=== PATIENT | male | born 1945 | race Caucasian/White ===

== ENCOUNTER 2017-08-10 14:04 | Emergency (ER) | payer MEDICARE, OTHER ==
[2017-08-10 15:34] LABS: Bilirubin Negative (Negative); Blood, Urine Negative (Negative); Clarity CLEAR (Clear); Glucose, Urine (Dipstick) 100 mg/dL (Negative); Leukocyte Trace (Negative); Nitrite Negative (Negative); Protein, Urine (Dipstick) Negative (Neg-Trace); Specific Gravity, Urine 1.022 (1.002-1.036)
[2017-08-10 15:37] LABS: Bacteria/HPF None Seen HPF (None Seen); Hyaline Casts/LPF 0-3 HYALINE CAST LPF (0-3 Hyaline); RBC/HPF 0-3 HPF (0-3); Squamous Epithelial 0-3 HPF (0-3); WBC/HPF 0-3 HPF (0-3)
[2017-08-10 15:55] LABS: #Basophils 0.1 thou/uL (0.0-0.2); #Eosinphils 0.6 thou/uL (0.0-0.7); #Lymphocytes 2.4 thou/uL (1.20-3.40); #Monocytes 0.8 thou/uL (0.11-0.59); #Neutrophils 3.9 thou/uL (1.40-6.50); %Basophils 1.3 % (0.0-1.0); %Eosinophils 7.6 % (0.0-10.0); %Lymphocytes 30.6 % (21.0-51.0); %Monocytes 10.6 % (0.0-10.0); %Neutrophils 49.9 % (42.0-75.0); Hemoglobin 13.7 g/dL (14.0-18.0); Mean Corpuscular HGB CONC 32.7 g/dL (32.0-36.0); Mean Corpuscular Hemoglobin 31.3 pg (27.0-31.0); Mean Corpuscular Volume 95.7 fl (80.0-94.0); Mean Platelet Volume 5.9 fL (7.4-10.4); Platelet Count 257 thou/uL (130-400); RBC Distribution Width 12.6 % (11.5-14.5); Red Blood Cell (RBC) Count 4.37 mill/uL (4.70-6.10); White Blood Cell (WBC) Count 7.8 thou/uL (4.8-10.8)
[2017-08-10 16:16] LABS: ALT (SGPT) 29 U/L (8-55); AST (SGOT) 29 U/L (5-34); Alkaline Phosphatase 57 U/L (40-150); Anion Gap 12 mmol/L (10-20); BUN (Urea Nitrogen) 21 mg/dL (8.4-25.7); Bilirubin, Total 0.3 mg/dL (0.2-1.2); Calc. Creatinine Clearance 0 mL/min (70-130); Calcium 9.3 mg/dL (7.8-10.44); Carbon Dioxide 25 mmol/L (23-31); Chloride 104 mmol/L (98-107); Estimated GFR-MDRD 59; Globulin 3.5 g/dL (2.4-3.5); Glucose 153 mg/dL (83-110); Lipase 32 U/L (8-78); Potassium 3.9 mmol/L (3.5-5.1); Protein, Total 7.5 g/dL (5.8-8.1); Sodium 137 mmol/L (136-145)
--- NOTE | 2017-08-10 17:03 | CT ---
CT OF ABDOMEN AND PELVIS: Date: 08-10-17 Comparison: 05-19-12 History: Left sided pain, back pain, left flank pain. Technique: Serial axial CT imaging is obtained at 5 mm intervals from lung bases through pubic symphy sis without contrast. Coronal reformatted imaging obtained. FINDINGS: The lack of contrast media limits assessment of the viscera bowel vascular structures and for lymphad enopathy. The visualized lung bases are unremarkable. Incompletely assessed coronary arterial calcifications ar e present. No free intraperitoneal air or fluid. Liver is hypodense suggesting a degree of steatosis. Gallbladder appears surgically absent. Spleen, p ancreas, and adrenal glands are grossly unremarkable. There is no evidence for nephrolithiasis or obstructive uropathy on either side. Prostate gland is markedly enlarged and contains dystrophic calcification, measuring 5.6 cm AP dimens ion, 6.9 cm transverse dimension and 5.5 cm craniocaudal dimension. Limited assessment of the bowel demonstrates significant stool throughout the colon. Appendix is unre markable. There is no evidence for bowel inflammatory changes or obstruction. There is extensive athe rosclerotic calcification in the abdominal aorta and its branches. There is severe degenerative changes seen throughout the mid thoracic spine and lumbar spine, most pr ominent within the lower lumbar spine where there is severe multilevel facet hypertrophy. There is mu ltilevel disc space narrowing, vacuum disc formation, subchondral sclerosis and osteophyte formation. There is an area of calcification approaching the central canal at L4-5 posteriorly and there is mul tilevel bilateral laminectomy change. These findings are similar when compared to the 2014 examinatio n. No worrisome lytic or blastic bone lesions. IMPRESSION: Numerous chronic findings as detailed above. There is no evidence for obstructive uropathy or nephrol ithiasis. POS: [facility]
[2017-08-10] MEDS ORDERED: Ketorolac Tromethamine 30 MG/ML VIAL ONE (17:07)
== END 2017-08-10 20:05 | disposition home or self-care (01) ==
LOC: ERS 14:04
DX: R10.9 Unspecified abdominal pain (principal); E11.9 Type 2 diabetes mellitus without complications; I10 Essential (primary) hypertension; Z79.899 Other long term (current) drug therapy; Z87.442 Personal history of urinary calculi; Z79.84 Long term (current) use of oral hypoglycemic drugs
CPT/HCPCS: 74176; 80053; 81003; 81015; 83690; 85025; 96374; J1885

== ENCOUNTER 2025-02-10 01:12 | Emergency (ER) | payer MEDICARE, BC | END 2025-02-10 02:07 | LOC: ERS 01:12 | DX: T82.594A Other mechanical complication of infusion catheter, initial encounter (principal); E11.9 Type 2 diabetes mellitus without complications; I10 Essential (primary) hypertension; Z79.899 Other long term (current) drug therapy | CPT/HCPCS: 99283 ==

== ENCOUNTER → 2025-02-10 | Emergency (ER) | payer MEDICARE, BC ==
[~2025-02-10] MED LIST: Lidocaine 1% w/Epinephrine 1:100K 20 ML VIAL ONE; Sodium Bicarbonate 2.5 MEQ/5 ML SDV ONE
== END ==
LOC: ERS 10:42 → SPEC 10:42
DX: T82.594A Other mechanical complication of infusion catheter, initial encounter (principal); I10 Essential (primary) hypertension; E11.9 Type 2 diabetes mellitus without complications; Z79.899 Other long term (current) drug therapy
CPT/HCPCS: 36573; 99283; C1751

== ENCOUNTER 2025-02-16 11:02 | Inpatient (IN) | payer MEDICARE, BC ==
[2025-02-16 12:06] VITALS: BMI 32.1
[2025-02-16 12:49] LABS: #Basophils 0.07 10x3/uL (0.0-0.2); #Eosinophils 0.35 10x3/uL (0.0-0.7); #Monocytes 0.96 10x3/uL (0.11-0.59); #Neutrophils 6.51 10x3/uL (1.40-6.50); %Basophils 0.7 % (0.0-1.0); %Eosinophils 3.7 % (0.0-10.0); %Lymphocytes 14.2 % (21.0-51.0); %Monocytes 10.2 % (0.0-10.0); %Neutrophils 69.4 % (42.0-75.0); Hematocrit 36.4 % (42.0-52.0); Hemoglobin 11.2 g/dL (14.0-18.0); Mean Corpuscular Hemoglobin 29.6 pg (27.0-31.0); Mean Corpuscular Volume 96.0 fL (78.0-98.0); Platelet Count 162 10x3/uL (130-400); Red Blood Cell (RBC) Count 3.79 mill/uL (4.70-6.10); White Blood Cell (WBC) Count 9.39 10x3/uL (4.8-10.8)
[2025-02-16 13:09] LABS: Anion Gap 16 mmol/L (10-20); BUN (Urea Nitrogen) 20 mg/dL (8.4-25.7); Calc. Creatinine Clearance 79 mL/min (70-130); Calcium 9.2 mg/dL (7.8-10.44); Carbon Dioxide 28 mmol/L (23-31); Chloride 99 mmol/L (98-107); Glucose 173 mg/dL (83-110); Potassium 4.1 mmol/L (3.5-5.1); Sodium 139 mmol/L (136-145)
[2025-02-16 13:10] LABS: CRP, High Sensitivity at Bryan 1.92 mg/dL (< or = 0.5)
[2025-02-16] MEDS ORDERED: Bacitracin Zinc Ointment 30 gm TUBE ONE (16:15)
[2025-02-16] MEDS ORDERED: Thrombin 5000 UNITS/5 ML VIAL ONE ×2 (16:16→18:48)
[2025-02-16] MEDS ORDERED: Lidocaine 1% PF 5 ML VIAL ONE (16:28)
[2025-02-16] MEDS ORDERED: Ondansetron PF 4 MG/2 ML Vial ONE (16:28)
[2025-02-16] MEDS ORDERED: PROPOFOL 20 ML ONE (16:28)
[2025-02-16] MEDS ORDERED: SUCCINYLCHOLINE/SOD CL,ISO/PF 200 MG/10 ML SYRINGE FS ONE (17:31)
[2025-02-16] MEDS ORDERED: TETANUS, DIPHTHERIA TOX,ADULT (TDVAX) 0.5 ML VIAL IM ONE (17:33)
[2025-02-16] MEDS ORDERED: Meperidine HCl/PF 25 MG (1 mL) VIAL IM PRN (17:37)
[2025-02-16] MEDS ORDERED: [UNRECOGNIZED DRUG - REMARK] FS SCH (17:45)
[2025-02-16] MEDS ORDERED: Rocuronium Bromide 10 MG/ML (10ML VIAL) ONE (17:47)
[2025-02-16] MEDS ORDERED: PHENYLEPHRINE-NS 100 MCG/ML 10 ML SYRINGE ONE (18:01)
[2025-02-16] MEDS ORDERED: SUGAMMADEX SODIUM 200 MG/2 ML VIAL ONE (18:52)
[2025-02-16] MEDS ORDERED: Vancomycin 1 GM in Premix 1 BAG IVPB SCH (21:00)
[2025-02-16] MEDS: Mupirocin 1 GM TUBE TP SCH (21:58)
[2025-02-16] MEDS: Aspirin 81 mg Enteric Coated Tablet PO SCH (21:58)
[2025-02-16] MEDS: Vancomycin 1.25 GM / NS 250 ML VIAL-2-BAG IVPB SCH (22:03)
[2025-02-17] MEDS: TETANUS AND DIPHTHERIA TOX/PF 0.5 ML DISP.SYRIN IM SCH (06:57)
[2025-02-17 07:49] LABS: ALT (SGPT) 20 U/L (Less than 45); AST (SGOT) 25 U/L (11-34); Albumin 2.5 g/dL (3.1-4.5); Alkaline Phosphatase 80 U/L (40-110); Anion Gap 12 mmol/L (10-20); BUN (Urea Nitrogen) 16 mg/dL (8.4-25.7); Bilirubin, Total 0.4 mg/dL (0.3-1.2); Calc. Creatinine Clearance 102 mL/min (70-130); Calcium 8.6 mg/dL (7.8-10.44); Carbon Dioxide 29 mmol/L (23-31); Chloride 101 mmol/L (98-107); Globulin 3.8 g/dL (2.4-3.5); Glucose 125 mg/dL (83-110); Potassium 4.4 mmol/L (3.5-5.1); Sodium 138 mmol/L (136-145)
[2025-02-17 08:04] LABS: #Basophils 0.06 10x3/uL (0.0-0.2); #Eosinophils 0.46 10x3/uL (0.0-0.7); #Monocytes 1.10 10x3/uL (0.11-0.59); #Neutrophils 6.70 10x3/uL (1.40-6.50); %Basophils 0.6 % (0.0-1.0); %Eosinophils 4.4 % (0.0-10.0); %Lymphocytes 19.4 % (21.0-51.0); %Monocytes 10.5 % (0.0-10.0); %Neutrophils 64.0 % (42.0-75.0); Hematocrit 32.1 % (42.0-52.0); Hemoglobin 10.0 g/dL (14.0-18.0); Mean Corpuscular Hemoglobin 29.8 pg (27.0-31.0); Mean Corpuscular Volume 95.5 fL (78.0-98.0); Platelet Count 156 10x3/uL (130-400); Red Blood Cell (RBC) Count 3.36 mill/uL (4.70-6.10); White Blood Cell (WBC) Count 10.47 10x3/uL (4.8-10.8)
[2025-02-17] MEDS: Metoprolol Succinate XL 100 MG ER.TAB PO SCH (09:22)
[2025-02-17] MEDS: glipiZIDE 5 MG TAB PO SCH (09:22)
[2025-02-17] MEDS: Cholecalciferol 1,000 UNITS (25 MCG) TAB PO SCH (09:23)
[2025-02-17] MEDS: Lisinopril 20 MG TAB PO SCH (09:23)
[2025-02-17] MEDS: Cyanocobalamin (Vitamin B-12) 1,000 MCG TAB PO SCH (09:23)
[2025-02-17] MEDS: Gabapentin 300 MG CAP PO SCH (09:23)
[2025-02-17] MEDS: HYDROcodone/Acetaminophen 5/325 mg Tablet PO PRN (09:35)
[2025-02-17 11:04] VITALS: BMI 32.1
[2025-02-17] MEDS: Ondansetron PF 4 MG/2 ML Vial IVP PRN (14:44)
[2025-02-17] MEDS: Ciprofloxacin 500 MG TAB PO SCH (20:37)
[2025-02-17] MEDS: Methocarbamol 500 MG TAB PO SCH (20:37)
[2025-02-18 05:25] LABS: Vancomycin, Random 14.1 ug/mL (See Comment)
[2025-02-20] MEDS: Acetaminophen/Codeine 30-300mg Tablet PO PRN (01:11)
[2025-02-20] MEDS: cefTRIAXone\\ROCEPHIN 2 GM in Sodium Chloride 0.9% 100 ML IVPB SCH (15:43)
[2025-02-20 18:00] LABS: #Basophils 0.05 10x3/uL (0.0-0.2); #Eosinophils 0.74 10x3/uL (0.0-0.7); #Monocytes 0.75 10x3/uL (0.11-0.59); #Neutrophils 5.19 10x3/uL (1.40-6.50); %Basophils 0.6 % (0.0-1.0); %Eosinophils 8.4 % (0.0-10.0); %Lymphocytes 22.6 % (21.0-51.0); %Monocytes 8.5 % (0.0-10.0); %Neutrophils 58.5 % (42.0-75.0); Hematocrit 30.9 % (42.0-52.0); Hemoglobin 9.8 g/dL (14.0-18.0); Mean Corpuscular Hemoglobin 30.3 pg (27.0-31.0); Mean Corpuscular Volume 95.7 fL (78.0-98.0); Platelet Count 150 10x3/uL (130-400); Red Blood Cell (RBC) Count 3.23 mill/uL (4.70-6.10); White Blood Cell (WBC) Count 8.85 10x3/uL (4.8-10.8)
[2025-02-20] MEDS ORDERED: Vancomycin 1 GM in Premix 1 BAG IVPB SCH (21:00)
[2025-02-21 01:17] LABS: Urine Total Volume 3600.0 mL (250-2400)
[2025-02-21 03:02] LABS: Uric Acid - 24 Hr 468.0 mg/24 hr; Uric Acid-Urine 13.0 mg/dL
[2025-02-21 05:22] LABS: Calc. Creatinine Clearance 100.0 mL/min (70-130); Vancomycin, Random 24.9 ug/mL (See Comment)
[2025-02-22 05:53] LABS: #Basophils 0.07 10x3/uL (0.0-0.2); #Eosinophils 0.80 10x3/uL (0.0-0.7); #Monocytes 1.00 10x3/uL (0.11-0.59); #Neutrophils 5.25 10x3/uL (1.40-6.50); %Basophils 0.7 % (0.0-1.0); %Eosinophils 8.1 % (0.0-10.0); %Lymphocytes 26.2 % (21.0-51.0); %Monocytes 10.1 % (0.0-10.0); %Neutrophils 53.3 % (42.0-75.0); Hematocrit 30.3 % (42.0-52.0); Hemoglobin 9.9 g/dL (14.0-18.0); Mean Corpuscular Hemoglobin 31.0 pg (27.0-31.0); Mean Corpuscular Volume 95.0 fL (78.0-98.0); Platelet Count 168 10x3/uL (130-400); Red Blood Cell (RBC) Count 3.19 mill/uL (4.70-6.10); White Blood Cell (WBC) Count 9.87 10x3/uL (4.8-10.8)
[2025-02-22 06:06] LABS: Anion Gap 12 mmol/L (10-20); BUN (Urea Nitrogen) 25 mg/dL (8.4-25.7); Calc. Creatinine Clearance 93 mL/min (70-130); Calcium 8.9 mg/dL (7.8-10.44); Carbon Dioxide 30 mmol/L (23-31); Chloride 101 mmol/L (98-107); Glucose 110 mg/dL (83-110); Potassium 3.9 mmol/L (3.5-5.1); Sodium 139 mmol/L (136-145)
[2025-02-23 05:25] LABS: #Basophils 0.05 10x3/uL (0.0-0.2); #Eosinophils 0.80 10x3/uL (0.0-0.7); #Monocytes 1.01 10x3/uL (0.11-0.59); #Neutrophils 6.13 10x3/uL (1.40-6.50); %Basophils 0.5 % (0.0-1.0); %Eosinophils 7.5 % (0.0-10.0); %Lymphocytes 23.7 % (21.0-51.0); %Monocytes 9.5 % (0.0-10.0); %Neutrophils 57.8 % (42.0-75.0); Hematocrit 30.7 % (42.0-52.0); Hemoglobin 9.8 g/dL (14.0-18.0); Mean Corpuscular Hemoglobin 30.2 pg (27.0-31.0); Mean Corpuscular Volume 94.5 fL (78.0-98.0); Platelet Count 166 10x3/uL (130-400); Red Blood Cell (RBC) Count 3.25 mill/uL (4.70-6.10); White Blood Cell (WBC) Count 10.62 10x3/uL (4.8-10.8)
[2025-02-23 05:52] LABS: Anion Gap 11 mmol/L (10-20); BUN (Urea Nitrogen) 24 mg/dL (8.4-25.7); Calc. Creatinine Clearance 100 mL/min (70-130); Calcium 9.0 mg/dL (7.8-10.44); Carbon Dioxide 31 mmol/L (23-31); Chloride 101 mmol/L (98-107); Glucose 99 mg/dL (83-110); Potassium 4.0 mmol/L (3.5-5.1); Sodium 139 mmol/L (136-145); Vancomycin, Random 21.3 ug/mL (See Comment)
[2025-02-24 05:19] LABS: #Basophils 0.08 10x3/uL (0.0-0.2); #Eosinophils 0.89 10x3/uL (0.0-0.7); #Monocytes 0.96 10x3/uL (0.11-0.59); #Neutrophils 5.43 10x3/uL (1.40-6.50); %Basophils 0.8 % (0.0-1.0); %Eosinophils 8.8 % (0.0-10.0); %Lymphocytes 25.7 % (21.0-51.0); %Monocytes 9.5 % (0.0-10.0); %Neutrophils 53.8 % (42.0-75.0); Hematocrit 30.9 % (42.0-52.0); Hemoglobin 9.8 g/dL (14.0-18.0); Mean Corpuscular Hemoglobin 30.2 pg (27.0-31.0); Mean Corpuscular Volume 95.4 fL (78.0-98.0); Platelet Count 167 10x3/uL (130-400); Red Blood Cell (RBC) Count 3.24 mill/uL (4.70-6.10); White Blood Cell (WBC) Count 10.09 10x3/uL (4.8-10.8)
[2025-02-24 05:36] LABS: Anion Gap 10 mmol/L (10-20); BUN (Urea Nitrogen) 23 mg/dL (8.4-25.7); Calc. Creatinine Clearance 107 mL/min (70-130); Calcium 8.7 mg/dL (7.8-10.44); Carbon Dioxide 31 mmol/L (23-31); Chloride 101 mmol/L (98-107); Glucose 89 mg/dL (83-110); Potassium 4.1 mmol/L (3.5-5.1); Sodium 138 mmol/L (136-145)
[2025-02-24] MEDS ORDERED: Ropivacaine 0.5% HCl/PF (150 MG/30 ML VIAL) ONE (10:00)
[2025-02-24] MEDS ORDERED: Ropivacaine 0.2% HCl/PF 20 ML ONE (10:01)
[2025-02-24] MEDS ORDERED: Lidocaine 1% PF 5 ML VIAL ONE (10:03)
[2025-02-24] MEDS ORDERED: fentaNYL PF 100 MCG/2 ML SYRINGE ONE (10:03)
[2025-02-24] MEDS ORDERED: Ondansetron PF 4 MG/2 ML Vial ONE (10:03)
[2025-02-24] MEDS ORDERED: Glycopyrrolate 0.2 MG/ML 5 ML SYRINGE ONE (10:25)
[2025-02-24] MEDS ORDERED: EPINEPHrine 1 MG/10 ML Abboject SYRINGE ONE (10:25)
[2025-02-24] MEDS ORDERED: Bacitracin Zinc Ointment 30 gm TUBE ONE (11:41)
[2025-02-24] MEDS ORDERED: PHENYLEPHRINE-NS 100 MCG/ML 10 ML SYRINGE ONE ×2 (12:22→13:17)
[2025-02-25] MEDS: Pantoprazole 40 MG VIAL IVP SCH (09:12)
[2025-02-26 07:15] LABS: #Basophils 0.08 10x3/uL (0.0-0.2); #Eosinophils 0.52 10x3/uL (0.0-0.7); #Monocytes 1.08 10x3/uL (0.11-0.59); #Neutrophils 5.87 10x3/uL (1.40-6.50); %Basophils 0.7 % (0.0-1.0); %Eosinophils 4.9 % (0.0-10.0); %Lymphocytes 28.5 % (21.0-51.0); %Monocytes 10.1 % (0.0-10.0); %Neutrophils 54.9 % (42.0-75.0); Hematocrit 29.2 % (42.0-52.0); Hemoglobin 9.1 g/dL (14.0-18.0); Mean Corpuscular Hemoglobin 30.3 pg (27.0-31.0); Mean Corpuscular Volume 97.3 fL (78.0-98.0); Platelet Count 165 10x3/uL (130-400); Red Blood Cell (RBC) Count 3.00 mill/uL (4.70-6.10); White Blood Cell (WBC) Count 10.70 10x3/uL (4.8-10.8)
[2025-02-26] MEDS: Calcium Carbonate 500 MG ChewTAB PO PRN (23:19)
[2025-02-28] MEDS: Acetaminophen 325 MG TAB PO PRN (01:15)
[2025-02-28] MEDS: diphenhydrAMINE 25 MG CAP PO SCH (03:04)
[2025-02-28] MEDS: Ketorolac Tromethamine 30 MG (1 mL) VIAL IVP SCH (05:24)
[2025-02-28 06:35] LABS: Vancomycin, Random 20.7 ug/mL (See Comment)
[2025-02-28 06:36] LABS: Calc. Creatinine Clearance 106.0 mL/min (70-130)
[2025-03-01 16:04] VITALS: BP 142/68; TEMP 98.1
== END 2025-03-01 18:47 | DRG 623 ==
LOC: SURG A 11:02
PROVIDERS: ADMIT Orthopaedic Surgery Hand Surgery; ATTEND Orthopaedic Surgery Hand Surgery
PROC: 0RBN0ZZ Excision of Right Wrist Joint, Open Approach (ICD-10-PCS; principal; 2025-02-16)
PROC: 3E03329 Introduction of Other Anti-infective into Peripheral Vein, Percutaneous Approach (ICD-10-PCS; 2025-02-16)
PROC: 3E033XZ Introduction of Vasopressor into Peripheral Vein, Percutaneous Approach (ICD-10-PCS; 2025-02-16)
PROC: 0R9N0ZZ Drainage of Right Wrist Joint, Open Approach (ICD-10-PCS; 2025-02-16)
PROC: 3E0234Z Introduction of Serum, Toxoid and Vaccine into Muscle, Percutaneous Approach (ICD-10-PCS; 2025-02-16)
PROC: 0PBM0ZZ Excision of Right Carpal, Open Approach (ICD-10-PCS; 2025-02-24)
PROC: 0RBN0ZZ Excision of Right Wrist Joint, Open Approach (ICD-10-PCS; 2025-02-24)
PROC: 0HBDXZZ Excision of Right Lower Arm Skin, External Approach (ICD-10-PCS; 2025-02-24)
PROC: 0HRDX73 Replacement of Right Lower Arm Skin with Autologous Tissue Substitute, Full Thickness, External Approach (ICD-10-PCS; 2025-02-24)
PROC: 0RH Upper Joints, Insertion (ICD-10-PCS; 2025-02-24)
DX: E11.69 Type 2 diabetes mellitus with other specified complication (principal); I13.0 Hypertensive heart and chronic kidney disease with heart failure and stage 1 through stage 4 chronic kidney disease, or unspecified chronic kidney disease; L02.413 Cutaneous abscess of right upper limb; M87.837 Other osteonecrosis of right carpus; M86.141 Other acute osteomyelitis, right hand; E78.00 Pure hypercholesterolemia, unspecified; K21.9 Gastro-esophageal reflux disease without esophagitis; E11.22 Type 2 diabetes mellitus with diabetic chronic kidney disease; N18.9 Chronic kidney disease, unspecified; Z88.5 Allergy status to narcotic agent; Z88.0 Allergy status to penicillin; Z87.442 Personal history of urinary calculi; Z79.899 Other long term (current) drug therapy; G89.29 Other chronic pain; Z23 Encounter for immunization; E66.9 Obesity, unspecified; G47.33 Obstructive sleep apnea (adult) (pediatric); Z90.49 Acquired absence of other specified parts of digestive tract; Z98.890 Other specified postprocedural states; Z87.891 Personal history of nicotine dependence; Z79.84 Long term (current) use of oral hypoglycemic drugs; R41.0 Disorientation, unspecified; Z86.73 Personal history of transient ischemic attack (TIA), and cerebral infarction without residual deficits; I50.9 Heart failure, unspecified; E11.51 Type 2 diabetes mellitus with diabetic peripheral angiopathy without gangrene
CPT/HCPCS: 36415; 36416; 70450; 80048; 80053; 80202; 82565; 84550; 84560; 85025; 86141; 87070; 87205; 88305; 88311; 89060; 97139; J0165; J0665; J0696; J1100; J1885; J2250; J2270; J2405; J2470; J2550; J2704; J2795; J3010; J3260; J3373; J7050

== ENCOUNTER 2025-05-04 09:55 | Outpatient (CLI) | payer MEDICARE, BC ==
[2025-05-04 10:58] LABS: #Basophils 0.06 10x3/uL (0.0-0.2); #Eosinophils 0.66 10x3/uL (0.0-0.7); #Monocytes 0.90 10x3/uL (0.11-0.59); #Neutrophils 4.92 10x3/uL (1.40-6.50); %Basophils 0.7 % (0.0-1.0); %Eosinophils 7.2 % (0.0-10.0); %Lymphocytes 27.9 % (21.0-51.0); %Monocytes 9.9 % (0.0-10.0); %Neutrophils 53.9 % (42.0-75.0); Hematocrit 33.8 % (42.0-52.0); Hemoglobin 10.4 g/dL (14.0-18.0); Mean Corpuscular Hemoglobin 26.8 pg (27.0-31.0); Mean Corpuscular Volume 87.1 fL (78.0-98.0); Platelet Count 185 10x3/uL (130-400); Red Blood Cell (RBC) Count 3.88 mill/uL (4.70-6.10); White Blood Cell (WBC) Count 9.13 10x3/uL (4.8-10.8)
[2025-05-04 11:20] LABS: Anion Gap 14 mmol/L (10-20); BUN (Urea Nitrogen) 13 mg/dL (8.4-25.7); Calc. Creatinine Clearance 0 mL/min (70-130); Calcium 8.9 mg/dL (7.8-10.44); Carbon Dioxide 26 mmol/L (23-31); Chloride 106 mmol/L (98-107); Glucose 112 mg/dL (83-110); Potassium 3.8 mmol/L (3.5-5.1); Sodium 142 mmol/L (136-145)
== END 2025-05-04 09:56 | disposition home or self-care (01) ==
LOC: LABBT 09:55
PROVIDERS: ATTEND Orthopaedic Surgery Hand Surgery
DX: Z01.818 Encounter for other preprocedural examination (principal); M86.9 Osteomyelitis, unspecified; M65.311 Trigger thumb, right thumb
CPT/HCPCS: 80048; 85025; 93005; 93010

== ENCOUNTER 2025-05-05 07:47 | Inpatient (IN) | payer MEDICARE, BC ==
[2025-05-05] MEDS ORDERED: PROPOFOL 20 ML ONE (08:08)
[2025-05-05] MEDS ORDERED: Bacitracin Zinc Ointment 30 gm TUBE ONE (08:38)
[2025-05-05] MEDS ORDERED: fentaNYL PF 100 MCG/2 ML SYRINGE ONE (09:23)
[2025-05-05] MEDS ORDERED: CEFAZOLIN 1 GM VIAL ONE (09:25)
[2025-05-05] MEDS ORDERED: Ondansetron PF 4 MG/2 ML Vial ONE (09:33)
[2025-05-05] MEDS ORDERED: Glycopyrrolate 0.2 MG/ML 5 ML SYRINGE ONE (10:24)
[2025-05-05] MEDS ORDERED: PHENYLEPHRINE-NS 100 MCG/ML 10 ML SYRINGE ONE (11:41)
[2025-05-05] MEDS ORDERED: Ondansetron PF 4 MG/2 ML Vial IVP PRN (12:28)
[2025-05-05] MEDS ORDERED: Acetaminophen 325 MG TAB PO PRN (12:28)
[2025-05-05] MEDS ORDERED: Vancomycin 1 GM in Premix 1 BAG IVPB SCH (12:30)
[2025-05-05] MEDS ORDERED: Communication Order-Pharmacy FS SCH (12:30)
[2025-05-05] MEDS ORDERED: Meperidine HCl/PF 25 MG (1 mL) VIAL IM PRN (12:30)
[2025-05-05 13:18] LABS: #Basophils 0.05 10x3/uL (0.0-0.2); #Eosinophils 0.19 10x3/uL (0.0-0.7); #Monocytes 0.18 10x3/uL (0.11-0.59); #Neutrophils 5.31 10x3/uL (1.40-6.50); %Basophils 0.7 % (0.0-1.0); %Eosinophils 2.8 % (0.0-10.0); %Lymphocytes 14.7 % (21.0-51.0); %Monocytes 2.7 % (0.0-10.0); %Neutrophils 78.4 % (42.0-75.0); Hematocrit 35.8 % (42.0-52.0); Hemoglobin 10.6 g/dL (14.0-18.0); Mean Corpuscular Hemoglobin 26.5 pg (27.0-31.0); Mean Corpuscular Volume 89.5 fL (78.0-98.0); Platelet Count 170 10x3/uL (130-400); Red Blood Cell (RBC) Count 4.00 mill/uL (4.70-6.10); White Blood Cell (WBC) Count 6.78 10x3/uL (4.8-10.8)
[2025-05-05] MEDS ORDERED: Dextrose 50% Abboject 50 ML SYRINGE SLOW IVP PRN (16:23)
[2025-05-05] MEDS ORDERED: Glucagon 1 MG/ML KIT IM PRN (16:23)
[2025-05-05] MEDS: TETANUS AND DIPHTHERIA TOX/PF 0.5 ML DISP.SYRIN IM SCH (16:59)
[2025-05-05] MEDS: VANCOMYCIN 2 GRAM/400 ML Premix BAG IVPB SCH (16:59)
[2025-05-05] MEDS: TETANUS, DIPHTHERIA TOX,ADULT (TDVAX) 0.5 ML VIAL IM ONE (17:38)
[2025-05-05 18:32] VITALS: BMI 36.1
[2025-05-05] MEDS: HYDROcodone/Acetaminophen 5/325 mg Tablet PO PRN (18:46)
[2025-05-05] MEDS: Gabapentin 300 MG CAP PO SCH (20:59)
[2025-05-05] MEDS: Aspirin 81 mg Enteric Coated Tablet PO SCH (21:00)
[2025-05-05] MEDS: Methocarbamol 500 MG TAB PO SCH (21:00)
[2025-05-05] MEDS: Benzocaine/Menthol 1 LOZ LOZ PO PRN (23:50)
[2025-05-06] MEDS: Vancomycin 1 GM in Premix 1 BAG IVPB SCH (05:42)
[2025-05-06] MEDS: glipiZIDE 5 MG TAB PO SCH (06:27)
[2025-05-06 06:46] LABS: Calc. Creatinine Clearance 124.0 mL/min (70-130)
[2025-05-06 06:48] LABS: Vancomycin, Random 11.7 ug/mL (See Comment)
[2025-05-06] MEDS: Lisinopril 20 MG TAB PO SCH (09:38)
[2025-05-06] MEDS: Cyanocobalamin (Vitamin B-12) 1,000 MCG TAB PO SCH (09:39)
[2025-05-06] MEDS: Metoprolol Succinate XL 100 MG ER.TAB PO SCH (09:39)
[2025-05-06] MEDS: Cholecalciferol 1,000 UNITS (25 MCG) TAB PO SCH (09:39)
[2025-05-07 05:29] LABS: #Basophils 0.05 10x3/uL (0.0-0.2); #Eosinophils 0.48 10x3/uL (0.0-0.7); #Monocytes 1.28 10x3/uL (0.11-0.59); #Neutrophils 5.40 10x3/uL (1.40-6.50); %Basophils 0.5 % (0.0-1.0); %Eosinophils 4.8 % (0.0-10.0); %Lymphocytes 28.1 % (21.0-51.0); %Monocytes 12.7 % (0.0-10.0); %Neutrophils 53.6 % (42.0-75.0); Hematocrit 30.1 % (42.0-52.0); Hemoglobin 9.0 g/dL (14.0-18.0); Mean Corpuscular Hemoglobin 26.2 pg (27.0-31.0); Mean Corpuscular Volume 87.5 fL (78.0-98.0); Platelet Count 164 10x3/uL (130-400); Red Blood Cell (RBC) Count 3.44 mill/uL (4.70-6.10); White Blood Cell (WBC) Count 10.07 10x3/uL (4.8-10.8)
[2025-05-07 05:48] LABS: Anion Gap 8 mmol/L (10-20); BUN (Urea Nitrogen) 12 mg/dL (8.4-25.7); Calc. Creatinine Clearance 111 mL/min (70-130); Calcium 8.6 mg/dL (7.8-10.44); Carbon Dioxide 29 mmol/L (23-31); Chloride 106 mmol/L (98-107); Glucose 87 mg/dL (83-110); Potassium 3.6 mmol/L (3.5-5.1); Sodium 139 mmol/L (136-145)
[2025-05-07] MEDS: Acetaminophen/Codeine 30-300mg Tablet PO PRN (16:46)
[2025-05-08 05:45] LABS: #Basophils 0.07 10x3/uL (0.0-0.2); #Eosinophils 0.60 10x3/uL (0.0-0.7); #Monocytes 1.26 10x3/uL (0.11-0.59); #Neutrophils 5.58 10x3/uL (1.40-6.50); %Basophils 0.7 % (0.0-1.0); %Eosinophils 6.0 % (0.0-10.0); %Lymphocytes 23.8 % (21.0-51.0); %Monocytes 12.7 % (0.0-10.0); %Neutrophils 56.2 % (42.0-75.0); Hematocrit 32.9 % (42.0-52.0); Hemoglobin 10.0 g/dL (14.0-18.0); Mean Corpuscular Hemoglobin 26.5 pg (27.0-31.0); Mean Corpuscular Volume 87.0 fL (78.0-98.0); Platelet Count 177 10x3/uL (130-400); Red Blood Cell (RBC) Count 3.78 mill/uL (4.70-6.10); White Blood Cell (WBC) Count 9.93 10x3/uL (4.8-10.8)
[2025-05-08 05:55] LABS: Anion Gap 13 mmol/L (10-20); BUN (Urea Nitrogen) 13 mg/dL (8.4-25.7); Calc. Creatinine Clearance 141 mL/min (70-130); Calcium 9.0 mg/dL (7.8-10.44); Carbon Dioxide 31 mmol/L (23-31); Chloride 99 mmol/L (98-107); Glucose 88 mg/dL (83-110); Potassium 3.6 mmol/L (3.5-5.1); Sodium 139 mmol/L (136-145)
[2025-05-09 05:06] LABS: #Basophils 0.05 10x3/uL (0.0-0.2); #Eosinophils 0.76 10x3/uL (0.0-0.7); #Monocytes 1.14 10x3/uL (0.11-0.59); #Neutrophils 5.45 10x3/uL (1.40-6.50); %Basophils 0.5 % (0.0-1.0); %Eosinophils 7.7 % (0.0-10.0); %Lymphocytes 24.3 % (21.0-51.0); %Monocytes 11.6 % (0.0-10.0); %Neutrophils 55.3 % (42.0-75.0); Hematocrit 34.4 % (42.0-52.0); Hemoglobin 10.5 g/dL (14.0-18.0); Mean Corpuscular Hemoglobin 25.7 pg (27.0-31.0); Mean Corpuscular Volume 84.1 fL (78.0-98.0); Platelet Count 177 10x3/uL (130-400); Red Blood Cell (RBC) Count 4.09 mill/uL (4.70-6.10); White Blood Cell (WBC) Count 9.85 10x3/uL (4.8-10.8)
[2025-05-09 05:21] LABS: Anion Gap 15 mmol/L (10-20); BUN (Urea Nitrogen) 15 mg/dL (8.4-25.7); Calc. Creatinine Clearance 126 mL/min (70-130); Calcium 9.2 mg/dL (7.8-10.44); Carbon Dioxide 30 mmol/L (23-31); Chloride 99 mmol/L (98-107); Glucose 72 mg/dL (83-110); Potassium 3.5 mmol/L (3.5-5.1); Sodium 140 mmol/L (136-145)
[2025-05-09 11:44] VITALS: BP 162/70; TEMP 97.7
== END 2025-05-09 15:00 | disposition home or self-care (01) | DRG 501 ==
LOC: SDC 07:47 → SURG B 15:13 → SDC 05-06 13:09 → SURG B 05-06 13:10
PROVIDERS: ADMIT Orthopaedic Surgery Hand Surgery; ATTEND Orthopaedic Surgery Hand Surgery
PROC: 0LB50ZZ Excision of Right Lower Arm and Wrist Tendon, Open Approach (ICD-10-PCS; principal; 2025-05-05)
PROC: 0RPN0JZ Removal of Synthetic Substitute from Right Wrist Joint, Open Approach (ICD-10-PCS; 2025-05-05)
PROC: 0PBM0ZZ Excision of Right Carpal, Open Approach (ICD-10-PCS; 2025-05-05)
PROC: 0PBM0ZZ Excision of Right Carpal, Open Approach (ICD-10-PCS; 2025-05-05)
PROC: 0RR Upper Joints, Replacement (ICD-10-PCS; 2025-05-05)
PROC: 01N50ZZ Release Median Nerve, Open Approach (ICD-10-PCS; 2025-05-05)
PROC: 3E0234Z Introduction of Serum, Toxoid and Vaccine into Muscle, Percutaneous Approach (ICD-10-PCS; 2025-05-05)
PROC: 3E03329 Introduction of Other Anti-infective into Peripheral Vein, Percutaneous Approach (ICD-10-PCS; 2025-05-05)
DX: M86.8X4 Other osteomyelitis, hand (principal); I50.32 Chronic diastolic (congestive) heart failure; K21.9 Gastro-esophageal reflux disease without esophagitis; G47.33 Obstructive sleep apnea (adult) (pediatric); E78.00 Pure hypercholesterolemia, unspecified; E66.9 Obesity, unspecified; Z98.890 Other specified postprocedural states; Z88.5 Allergy status to narcotic agent; Z88.0 Allergy status to penicillin; Z88.8 Allergy status to other drugs, medicaments and biological substances; N40.0 Benign prostatic hyperplasia without lower urinary tract symptoms; I11.0 Hypertensive heart disease with heart failure; Z23 Encounter for immunization
CPT/HCPCS: 36415; 36416; 80048; 80202; 82565; 85025; 87070; 87205; 88305; 88307; 88311; 88331; 90714; 93005; 93010; A6223; C1894; J0665; J0690; J1100; J1815; J2405; J2704; J3373; J3375